=== PATIENT | male | born 1960 | race Caucasian/White ===

== ENCOUNTER 2018-08-18 21:24 | Emergency (ER) | payer BC ==
[~2018-08-18] VITALS: Ht 190.5 cm; Wt 108.9 kg
[2018-08-18 22:27] VITALS: BP 104/84
== END 2018-08-18 22:30 | disposition home or self-care (01) ==
LOC: ER 21:24
DX: M25.511 Pain in right shoulder (principal); S46.811A Strain of other muscles, fascia and tendons at shoulder and upper arm level, right arm, initial encounter; S29.012A Strain of muscle and tendon of back wall of thorax, initial encounter; S39.012A Strain of muscle, fascia and tendon of lower back, initial encounter; B19.20 Unspecified viral hepatitis C without hepatic coma; K74.60 Unspecified cirrhosis of liver
CPT/HCPCS: 99282